=== PATIENT | male | born 1990 | race Caucasian/White ===

== ENCOUNTER 2016-06-23 18:05 | Emergency (ER) | payer SELFPAY ==
[2016-06-23] MEDS ORDERED: DEXAMETHASONE SOD PHOS INJ 10 MG/1 ML VIAL IM ONE (19:21)
[2016-06-23] MEDS ORDERED: HYDROCODONE/ACETAMINOPHEN 5-325 MG 6 TAB/DSPK PO PRN (19:21)
[2016-06-23] MEDS ORDERED: AMOXICILLIN TRIHYDRATE 500 MG CAPSULE PO ONE (19:21)
--- NOTE | 2016-06-23 19:26 | ER Document Report ---
HPI - HPI Patient complains to provider of: sore throat, fever, body aches Pain Level: 3 Context: Patient is a 25-year-old male that comes emergency department for chief complaint of sore throat for the past 3 days, fevers including temperature up to 102.5, body aches. Patient states that he strained his back working in the yard several days ago, states it is worse because of his fever. He denies focal numbness or weakness, denies impact injury, denies bowel or bladder abnormality. He denies history of IV drug abuse. He denies any past medical history other than orthopedic injury. 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 - DERM Skin Color: Normal Past Medical History - General Information source: Patient - Social History Smoking Status: Never Smoker Drug Abuse: None Lives with: Family Family History: Reviewed & Not Pertinent Patient has suicidal ideation: No Patient has homicidal ideation: No Renal/ Medical History: Denies: Hx Peritoneal Dialysis Musculoskeltal Medical History: Reports Hx Arthritis Surgical Hx: Negative - Immunizations Hx Diphtheria, Pertussis, Tetanus Vaccination: Yes Vertical Provider Document - CONSTITUTIONAL General Appearance: WD/WN, No Apparent Distress - patient slightly flushed and diaphoretic, but he is talkative, alert, and well appearing - INFECTION CONTROL TRAVEL OUTSIDE OF THE [place] IN LAST 30 DAYS: No - HEENT HEENT: Atraumatic, Normocephalic, Pharyngeal Exudate - Bilateral tonsillar hypertrophy worse on the right with exudates. No evidence of peritonsillar abscess, clear airway.. negative: Normal ENT Exam - NECK Neck: Lymphadenopathy-Left, Lymphadenopathy-Right, Other - Bilateral mild adenopathy with some tenderness, no submandibular or soft tissue swelling - RESPIRATORY Respiratory: Breath Sounds Normal, No Respiratory Distress O2 Sat by Pulse Oximetry: 99 - CARDIOVASCULAR Cardiovascular: Regular Rate - Not tachycardic on my exam, Regular Rhythm - GI/ABDOMEN Gastrointestinal: Abdomen Soft, Abdomen Non-Tender - BACK Back: Normal Inspection - Unremarkable back exam with no midline tenderness, no saddle anesthesia, full range of motion of all extremities, normal strength, normal distal neurovascular exam. - MUSCULOSKELETAL/EXTREMETIES Musculoskeletal/Extremeties: MAEW, FROM, Non-Tender - NEURO Level of Consciousness: Awake, Alert, Appropriate Motor/Sensory: No Motor Deficit, No Sensory Deficit Course - Re-evaluation Re-evalutation: Patient appears to have recently broken a fever and has some sweating, however he is alert, conversational, well-appearing. No nuchal rigidity. Has obvious exudative pharyngitis with no evidence of peritonsillar abscess, clear airway, no difficulty handling secretions. Patient has no insurance, after discussion he declines a workup, because patient satisfies all 4 Centor criteria patient will be treated for suspected strep pharyngitis, discussed follow-up, discussed return precautions, patient states understanding and agreement. - Vital Signs Vital signs: Temp Pulse Resp BP Pulse Ox 98.8 F 104 H 20 120/95 H 99 06/23/16 18:11 06/23/16 18:11 06/23/16 18:11 06/23/16 18:11 06/23/16 18:11 Discharge - Discharge Clinical Impression: Exudative pharyngitis, Adenopathy, cervical, Body aches Fever Qualifiers: Fever type: unspecified Qualified Code(s): R50.9 - Fever, unspecified Condition: Stable Disposition: HOME, SELF-CARE Additional Instructions: Your physical examination and symptoms are very suggestive of a strep throat infection. You have been treated for this, taking the antibiotic to completion, it is still possible this is viral and could last several more days however. Take ibuprofen for pain and fever, drink plenty of fluids and rest. Follow-up with primary care. Return to the emergency department for any concerning or worsening symptoms. Prescriptions: Amoxicillin Trihydrate [Amoxil 500 mg Capsule] 500 mg PO TID #30 cap Forms: Return to Work
[2016-06-23 20:24] VITALS: BP 120/88
== END 2016-06-23 20:22 | disposition home or self-care (01) ==
LOC: ER 18:05
DX: J02.9 Acute pharyngitis, unspecified (principal); R59.9 Enlarged lymph nodes, unspecified; R52 Pain, unspecified; R50.9 Fever, unspecified
CPT/HCPCS: 99283; 96372; J1100

== ENCOUNTER 2016-11-25 18:32 | Emergency (ER) | payer SELFPAY ==
[2016-11-25] MEDS ORDERED: HYDROCODONE/ACETAMINOPHEN 5-325 MG TABLET PO ONE (21:12)
--- NOTE | 2016-11-25 21:17 | ER Document Report ---
ED General - General Chief Complaint: Toothache Stated Complaint: TOOTH ACHE Time Seen by Provider: 11/25/16 20:32 Mode of Arrival: Ambulatory Information source: Patient, Friend Notes: Patient is a 18-year-old male comes to the emergency room complaining of a 3 day onset of right back molar lower tooth discomfort and pain. Patient states that his fracture multiple times and is now down below his gumline. States that 3 days ago it got a lot worse they woke him up in the middle of the night at evening around 3 AM and felt like somebody was smashing his head against the wall" by patient. Patient comes in denies that he cannot stand the pain anymore and is holding his jaw. He has some mild swelling according to him and some major discomfort. He also states he has an appointment 1 week with a group somewhere within the [facility] that will help him pull this tooth. TRAVEL OUTSIDE OF THE [place] IN LAST 30 DAYS: No - HPI Onset: Other Onset/Duration: Constant, Persistent, Waxing and waning, Worse Quality of pain: Achy, Sharp, Stabbing, Throbbing. denies: No pain Severity: Severe Pain Level: 5 Associated symptoms: Chills Exacerbated by: Other Relieved by: Food - Eating drinking and breathing with hair coming across the tooth as well as change in hot and cold cause severe discomfort. Similar symptoms previously: Yes Recently seen / treated by doctor: No - C - Related Data Allergies/Adverse Reactions: No Known Allergies Allergy (Verified 12/28/15 10:12) Past Medical History - Social History Smoking Status: Current Every Day Smoker Family History: Reviewed & Not Pertinent Patient has suicidal ideation: No Patient has homicidal ideation: No Renal/ Medical History: Denies: Hx Peritoneal Dialysis Musculoskeltal Medical History: Reports Hx Arthritis - Immunizations Hx Diphtheria, Pertussis, Tetanus Vaccination: Yes Physical Exam - Vital signs Vitals: Temp Pulse Resp BP Pulse Ox 97.9 F 84 18 145/118 H 99 11/25/16 18:37 11/25/16 18:37 11/25/16 18:37 11/25/16 18:37 11/25/16 18:37 Course - Vital Signs Vital signs: Temp Pulse Resp BP Pulse Ox 97.7 F 64 18 127/88 H 98 11/25/16 21:29 11/25/16 21:29 11/25/16 18:39 11/25/16 21:29 11/25/16 21:29 Discharge - Discharge Clinical Impression: Dental abscess Condition: Stable Disposition: HOME, SELF-CARE Instructions: Abscess ([facility]), [facility], Clindamycin ([facility]), Oral Narcotic Medication ([facility]) Additional Instructions: Home and rest. Medications prescribed. As I indicated to you a dental block would have giving instant relief almost 100% however since she do not like needles we will only be able to treat you with some pain medication and some antibiotics. It is highly important he follow up with your dental clinic that you are going to see next week in order to get this tooth taken care of. Should you have any concerns or problems return to ER for a recheck or possible for the dental block which may alleviate the discomfort for a while. Prescriptions: Clindamycin HCl 300 mg PO Q6 #40 capsule Hydrocodone/Acetaminophen [(ER) Hanna 5-325 mg Tabs #6 ER Disp] 0 tab PO Q4 PRN #6 dspk PRN Reason: For Pain Hydrocodone/Acetaminophen [Hanna 7.5-325 mg Tablet] 1 tab PO Q6 PRN #12 tablet PRN Reason: For Pain Scale 3-5
[2016-11-25 21:42] VITALS: BP 127/88
== END 2016-11-25 21:42 | disposition home or self-care (01) ==
LOC: ER 18:32
DX: K04.7 Periapical abscess without sinus (principal); K08.89 Other specified disorders of teeth and supporting structures; R22.0 Localized swelling, mass and lump, head
CPT/HCPCS: 99282

== ENCOUNTER 2017-12-22 01:39 | Emergency (ER) | payer SELFPAY ==
[2017-12-22] MEDS ORDERED: HYDROCODONE/ACETAMINOPHEN 7.5-325 MG TABLET PO ONE (03:17)
--- NOTE | 2017-12-22 03:31 | ER Document Report ---
HPI - HPI Patient complains to provider of: Toothache Pain Level: 5 Context: Patient is a 27-year-old male presenting to the emergency department complaining of left lower tooth pain. Patient states he has had pain for the last 2 weeks intermittently. Patient states he called the [facility] in [facility] office and has an appointment next . States they recommended he come to the emergency department to get oral antibiotics as they will not be able to do any sort of dental procedures if there is an active infection. Patient states he has tried Tylenol and Motrin at home for the pain which has not helped. Patient denies any fever. Past medical history: None Medications: None Allergies: None Patient states he did take 4 tabs of an old the penicillin prescription he found in his medicine cabinet 7 days ago. Past Medical History - General Information source: Patient - Social History Smoking Status: Current Every Day Smoker Frequency of alcohol use: None Drug Abuse: None Lives with: Family Family History: Reviewed & Not Pertinent Patient has suicidal ideation: No Patient has homicidal ideation: No Renal/ Medical History: Denies: Hx Peritoneal Dialysis Musculoskeletal Medical History: Reports Hx Arthritis - Immunizations Hx Diphtheria, Pertussis, Tetanus Vaccination: Yes Vertical Provider Document - CONSTITUTIONAL Agree With Documented VS: Yes Notes: GENERAL: Alert, interacts well. Holding the left side of his face. HEAD: Normocephalic, atraumatic. EYES: Pupils equal, round, and reactive to light. Extraocular movements intact. ENT: Oral mucosa moist, tongue midline. Obvious decay to tooth #17, no surrounding, erythema, no fluctuance or induration noted, negative Ludwigs angina NECK: Full range of motion. Supple. Trachea midline. No adenopathy appreciated LUNGS: Clear to auscultation bilaterally, no wheezes, rales, or rhonchi. No respiratory distress. HEART: Regular rate and rhythm. No murmur ABDOMEN: Soft, non-tender. Non-distended. Bowel sounds present in all 4 quadrants. EXTREMITIES: Moves all 4 extremities spontaneously. No edema, normal radial and dorsalis pedis pulses bilaterally. No cyanosis. BACK: no cervical, thoracic, lumbar midline tenderness. No saddle anesthesia, normal distal neurovascular exam. NEUROLOGICAL: Alert and oriented x3. Normal speech. cranial nerves II through XII grossly intact. PSYCH: Normal affect, normal mood. SKIN: Warm, dry, normal turgor. No rashes or lesions noted. - INFECTION CONTROL TRAVEL OUTSIDE OF THE [place] IN LAST 30 DAYS: No Course - Re-evaluation Re-evalutation: 12/22/17 03:30 Will prescribe patient oral antibiotics and discussed need for [facility]. Discussed Tylenol and Motrin at home for pain and discomfort. - Vital Signs Vital signs: Temp Pulse Resp BP Pulse Ox 98.2 F 86 18 139/86 H 97 12/22/17 01:39 12/22/17 01:39 12/22/17 01:39 12/22/17 01:39 12/22/17 01:39 Discharge - Discharge Clinical Impression: Toothache, Dental caries Condition: Stable Disposition: HOME, SELF-CARE Instructions: [facility], Toothache ([facility]), Penicillin V K ([facility]) Prescriptions: Penicillin V Potassium [Penicillin Vk 500 mg Tablet] 500 mg PO BID #20 tablet
[2017-12-22 03:44] VITALS: BP 140/97
== END 2017-12-22 03:45 | disposition home or self-care (01) ==
LOC: ER 01:39
DX: K02.9 Dental caries, unspecified (principal); K08.89 Other specified disorders of teeth and supporting structures; F17.200 Nicotine dependence, unspecified, uncomplicated
CPT/HCPCS: 99283

== ENCOUNTER 2019-01-21 09:07 | Emergency (ER) | payer SELFPAY ==
--- NOTE | 2019-01-21 10:15 | RADIOLOGY REPORT (SQ) ---
EXAM DESCRIPTION: ANKLE RIGHT COMPLETE COMPLETED DATE/TIME: 01/21/2019 9:46 am REASON FOR STUDY: dropped piano on foot, pain with weight bearing COMPARISON: Right foot films same date NUMBER OF VIEWS: Three views. TECHNIQUE: AP, lateral, and oblique radiographic images acquired of the right ankle. LIMITATIONS: None. FINDINGS: MINERALIZATION: Normal. BONES: No acute fracture or dislocation. No worrisome bone lesions. JOINTS: No effusions. SOFT TISSUES: No soft tissue swelling. No foreign body. OTHER: No other significant finding. IMPRESSION: NEGATIVE STUDY OF THE RIGHT ANKLE. NO RADIOGRAPHIC EVIDENCE OF ACUTE INJURY. TECHNICAL DOCUMENTATION: JOB ID: [id number] [employer]- All Rights Reserved Reading location - IP/workstation name: [email or web address]
--- NOTE | 2019-01-21 10:16 | RADIOLOGY REPORT (SQ) ---
EXAM DESCRIPTION: FOOT RIGHT COMPLETE COMPLETED DATE/TIME: 01/21/2019 9:46 am REASON FOR STUDY: dropped piano on foot, pain with weight bearing. COMPARISON: Right ankle three views same date NUMBER OF VIEWS: Three views. TECHNIQUE: AP, lateral and oblique radiographic images acquired of the right foot. LIMITATIONS: None. FINDINGS: MINERALIZATION: Normal. BONES: No acute fracture or dislocation. No worrisome bone lesions. JOINTS: No effusions. SOFT TISSUES: Diffuse dorsal forefoot soft tissue swelling. No foreign body. OTHER: No other significant finding. IMPRESSION: Diffuse dorsal forefoot soft tissue swelling. No acute fracture. TECHNICAL DOCUMENTATION: JOB ID: [id number] [employer]- All Rights Reserved Reading location - IP/workstation name: [email or web address]
--- NOTE | 2019-01-21 10:33 | ER Document Report ---
HPI - HPI Time Seen by Provider: 01/21/19 09:51 Pain Level: 3 Context: Patient is a 28-year-old male who presents emergency department with a chief complaint of right foot swelling. Patient reports Monday he was moving a piano up the stairs and as he was walking backwards up the stairs the piano dropped on the top of his foot. Patient reports at that time his foot was stuck in between the step and the piano and causing him to fall backwards and stretch the top of his foot. Patient reports he did have immediate swelling. Patient reports he did elevate his foot and take ibuprofen yesterday with minimal relief. Patient reports it is very difficult and painful to ambulate although he is able to. Patient denies any other injury. Patient denies use of blood thinners. Patient denies head or back pain. Past Medical History - General Information source: Patient - Social History Smoking Status: Current Every Day Smoker Chew tobacco use (# tins/day): No Frequency of alcohol use: Rare Drug Abuse: None Lives with: Family Family History: Reviewed & Not Pertinent Patient has suicidal ideation: No Patient has homicidal ideation: No - Past Medical History Cardiac Medical History: Reports: None Pulmonary Medical History: Reports: None EENT Medical History: Reports: None Neurological Medical History: Reports: None Endocrine Medical History: Reports: None Renal/ Medical History: Reports: None. Denies: Hx Peritoneal Dialysis Malignancy Medical History: Reports None GI Medical History: Reports: None Musculoskeletal Medical History: Reports Hx Arthritis Skin Medical History: Reports None Psychiatric Medical History: Reports: None Traumatic Medical History: Reports: None Infectious Medical History: Reports: None Surgical Hx: Negative - Immunizations Hx Diphtheria, Pertussis, Tetanus Vaccination: Yes Vertical Provider Document - CONSTITUTIONAL Agree With Documented VS: Yes Exam Limitations: No Limitations General Appearance: No Apparent Distress - INFECTION CONTROL TRAVEL OUTSIDE OF THE [place] IN LAST 30 DAYS: No - HEENT HEENT: Atraumatic, Normocephalic, PERRLA - NECK Neck: Normal Inspection - RESPIRATORY Respiratory: Breath Sounds Normal, No Respiratory Distress - CARDIOVASCULAR Cardiovascular: Regular Rate, Regular Rhythm - GI/ABDOMEN Gastrointestinal: Abdomen Soft, Abdomen Non-Tender, Normal Bowel Sounds - MUSCULOSKELETAL/EXTREMETIES Musculoskeletal/Extremeties: FROM Notes: Patient has tenderness and ecchymosis noted to the dorsal aspect of the right foot. Patient does have a palpable +2 dorsalis pedis and posterior tibial pulse. Patient does not have any point tenderness to the medial or lateral malleolus. Patient able to move all of his digits on his right foot. Patient has a less than 2-second cap refill. - NEURO Level of Consciousness: Awake, Alert, Appropriate - DERM Integumentary: Warm, Dry, No Rash Course - Re-evaluation Re-evalutation: 01/21/19 10:31 I did discuss the results of the x-ray with the patient. Patient diagnosed with a right foot sprain. We will place the patient in an Srinivasa bandage and given crutches. Patient to continue icing, elevating and using anti-inflammatories. - Vital Signs Vital signs: Temp Pulse Resp BP Pulse Ox 98.5 F 95 16 127/74 H 96 01/21/19 09:13 01/21/19 09:13 01/21/19 09:13 01/21/19 09:13 01/21/19 09:13 - Diagnostic Test Radiology reviewed: Reports reviewed Radiology results interpreted by me: 01/21/19 10:32 Ankle X-Ray 01/21/19 09:20 IMPRESSION: NEGATIVE STUDY OF THE RIGHT ANKLE. NO RADIOGRAPHIC EVIDENCE OF ACUTE INJURY. Foot X-Ray 01/21/19 09:20 IMPRESSION: Diffuse dorsal forefoot soft tissue swelling. No acute fracture. Discharge - Discharge Clinical Impression: Right foot sprain Qualifiers: Encounter type: initial encounter Qualified Code(s): S93.601A - Unspecified sprain of right foot, initial encounter Condition: Stable Disposition: HOME, SELF-CARE Additional Instructions: SPRAIN: Your injury is a sprain. A sprain results from stretching or tearing of the ligaments, usually from a twisting injury. The ligaments will require time and protection in order to heal properly. Many sprains are quite disabling and should be taken seriously. The usual initial treatment of sprains is cold packs, elevation, and rest of the injured area. Your physician has assessed the seriousness of your ligament injury, and has outlined a treatment plan. Understand that this treatment may change, depending on how you progress. If a re-examination was recommended, it is important that you follow up as instructed. Call the doctor any time if there is severe pain, numbness, or loss of function in the injured area. SRINIVASA WRAP: A compression dressing (srinivasa wrap) has been placed. This helps hold the area still. It limits swelling and internal bleeding. The wrap should be comfortably snug -- not tight. You should feel a sense of pressure, but not severe pain under the wrap. Unless the physician tells you otherwise, you can adjust the wrap for comfort. If the wrap causes symptoms suggesting it's too tight -- uncomfortable pressure, swelling or discoloration beyond the wrap, numbness, or severe pain -- you must loosen the wrap. If these symptoms don't resolve promptly, return for re-evaluation. SPLINT PRECAUTIONS: A splint has been placed. This will protect the area while healing begins. Your problem does NOT normally require a cast. It MUST, however, be held still! Keep the splint on ALL THE TIME until instructed to remove it by the doctor. As you begin to use the area, be careful. You shouldn't do anything which causes discomfort -- you may disturb the injury even with the splint in place. After the initial period of rest and elevation, if splint does not prevent pain when you move, come back. You may require placement of a different splint, or a cast. If there is unexpected severe pain, or numbness, discoloration, or swelling beyond the splint, you should return at once. If you feel that the splint has broken or become loose, come back. USE OF CRUTCHES: The doctor has recommended that you not bear weight at this time. You will need to use crutches. Adjust the crutches so the tops come to about two inches under the armpit while you are standing upright. Use your hands -- not your armpits -- to support your weight. To get into a chair, support yourself with one crutch on the injured side. Hold the chair with the other hand, then lower yourself while putting all your weight on the good leg. Going up stairs is `good leg up, step up, then bring up crutches and bad leg.' Down stairs is `bad leg and crutches down, then bring good leg down.' If you develop numbness or swelling in an arm or hand, you are using the crutches incorrectly. Return if you are having any problems with the crutches. ICE & ELEVATION: Apply ice packs frequently against the painful area. Many different schedules are recommended, such as "20 minutes on, 20 minutes off" or "one hour ice, two hours rest." If you need to work, you may need to go longer between ice treatments. You should plan to have the area ice packed AT LEAST one-fourth of the time. The ice should be applied over the wrap, tape, or splint, or over a layer of cloth -- not directly against the skin. Some ice bags have a built-in cloth and can be put directly on the skin. Your injured part should be elevated as much as possible over the next 48 h ours. Try to keep the injury above the level of the heart. Avoid use of the injured area. Elevation and rest will decrease the swelling. USE OF [id number] IBUPROFEN: Ibuprofen (Advil, Nuprin, Medipren, Motrin IB) is a medication for fever and pain control. In addition, it has anti- inflammatory effects which may be beneficial, especially in the treatment of injuries. It's best to take ibuprofen with food. Persons with ulcer disease or allergy to aspirin should notify their physician of this before taking ibuprofen. Ibuprofen can be given every four to six hours, for a total of four doses daily. Age Pain or fever dose Antiinflammatory dose 6-8 yr 200 mg (1 tab) 200 mg (1 tab) 9-11 yr 200 mg (1 tab) 200-400 mg (1-2 tab) 11-14 yr 200-400 mg (1-2 tab) 400 mg (2 tab) 15-adult 400 mg (2 tab) 600 mg (3 tab) ORAL NARCOTIC MEDICATION: You have been given a prescription for pain control. This medication is a narcotic. It's best taken with food, as nausea can result if taken on an empty stomach. Don't operate machinery or drive within six hours of taking this medication. Do not combine this medicine with alcohol, or with any medication which can cause sedation (such as cold tablets or sleeping pills) unless you get permission from the physician. Narcotics tend to cause constipation. If possible, drink plenty of fluids and eat a diet high in fiber and fruits. Please be aware that prescription narcotics also have the potential for abuse. People become addicted to these medications because of the general sense of wellbeing that they induce. This feeling along with a significant reduction in tension, anxiety, and aggression provides a stimulating seductive quality to these drugs. Once your pain is under control, we encourage you to discard your unused narcotics. FOLLOW-UP CARE: If you have been referred to a physician for follow-up care, call the physicians office for an appointment as you were instructed or within the next two days. If you experience worsening or a significant change in your symptoms, notify the physician immediately or return to the Emergency Department at any time for re-evaluation. Prescriptions: Naproxen 500 mg PO BID PRN #14 tablet PRN Reason: Forms: Return to Work Referrals: NIKKY LAGOS DO [ACTIVE STAFF] - Follow up as needed TAMEKA SUNG MD [ACTIVE STAFF] - Follow up as needed SHAYY SUAREZ JR, DO [ACTIVE PROVISIONAL STAFF] - Follow up as needed
[2019-01-21 10:45] VITALS: BP 137/80
== END 2019-01-21 10:46 | disposition home or self-care (01) ==
LOC: ER 09:07
DX: S93.601A Unspecified sprain of right foot, initial encounter (principal); M79.89 Other specified soft tissue disorders; W22.8XXA Striking against or struck by other objects, initial encounter; F17.200 Nicotine dependence, unspecified, uncomplicated
CPT/HCPCS: 99283

== ENCOUNTER 2019-07-29 12:28 | Emergency (ER) | payer SELFPAY ==
[2019-07-29 12:54] VITALS: BP 118/75
[2019-07-29] MEDS ORDERED: LIDOCAINE 2% VISCOUS SOLN 15 ML UDCUP PO ONE (13:24)
[2019-07-29] MEDS ORDERED: CLINDAMYCIN HCL 150 MG CAPSULE PO ONE (13:24)
--- NOTE | 2019-07-29 13:27 | ER Document Report ---
HPI - HPI Patient complains to provider of: Dental pain Time Seen by Provider: 07/29/19 13:23 Onset: Other - 4 days Onset/Duration: Worse Pain Level: 5 Context: Patient presents complaining of dental pain chronically that worsened over the past 4 days. Patient reports tenderness to the left lower jaw. Patient just finished antibiotics for his tooth ache 4 days ago. Patient denies any facial swelling or fever. Associated Symptoms: Other - Dental pain. denies: Fever Exacerbated by: Denies Relieved by: Denies Similar symptoms previously: No Recently seen / treated by doctor: No - ROS ROS below otherwise negative: Yes Systems Reviewed and Negative: Yes All other systems reviewed and negative - CONSTITUTIONAL Constitutional: DENIES: Fever, Chills - EENT Notes: Dental pain - RESPIRATORY Respiratory: DENIES: Coughing - GASTROINTESTINAL Gastrointestinal: DENIES: Nausea, Patient vomiting - DERM Skin Color: Normal Skin Problems: None Past Medical History - General Information source: Patient - Social History Smoking Status: Current Every Day Smoker Frequency of alcohol use: None Drug Abuse: None Occupation: Furniture moving Family History: Reviewed & Not Pertinent Renal/ Medical History: Denies: Hx Peritoneal Dialysis Musculoskeletal Medical History: Reports Hx Arthritis Surgical Hx: Negative - Immunizations Hx Diphtheria, Pertussis, Tetanus Vaccination: Yes Vertical Provider Document - CONSTITUTIONAL Agree With Documented VS: Yes Exam Limitations: No Limitations General Appearance: WD/WN, No Apparent Distress - INFECTION CONTROL TRAVEL OUTSIDE OF THE [place] IN LAST 30 DAYS: No - HEENT HEENT: Atraumatic, Normocephalic Mouth Diagram: 1 - L dental fracture, tenderness 2 - tenderness, fracture - NECK Neck: Normal Inspection, Supple. negative: Lymphadenopathy-Left, L ymphadenopathy-Right - RESPIRATORY Respiratory: Breath Sounds Normal, No Respiratory Distress - CARDIOVASCULAR Cardiovascular: Regular Rate, Regular Rhythm - MUSCULOSKELETAL/EXTREMETIES Musculoskeletal/Extremeties: MAEW - NEURO Level of Consciousness: Awake, Alert, Appropriate Motor/Sensory: No Motor Deficit - DERM Integumentary: Warm, Dry Course - Re-evaluation Re-evalutation: 07/29/19 13:26 Patient without any dental abscess, no trismus, no potential airway compromise. Patient encouraged to follow-up with dental care provider for further management. - Vital Signs Vital signs: Temp Pulse Resp BP Pulse Ox 98.0 F 82 16 118/75 98 07/29/19 12:51 07/29/19 12:51 07/29/19 12:51 07/29/19 12:51 07/29/19 12:51 Discharge - Discharge Clinical Impression: Toothache Condition: Stable Disposition: HOME, SELF-CARE Instructions: Clindamycin ([facility]), Oral Narcotic Medication ([facility]), Toothache ([facility]) Additional Instructions: Return immediately for any new or worsening symptoms Followup with your primary care provider, call tomorrow to make a followup appointment Follow-up with your dental care provider as planned Prescriptions: Acetaminophen with Codeine [Tylenol #3 Tablet] 1 each PO Q6HP PRN #12 tablet PRN Reason: Clindamycin HCl 300 mg PO TID #21 capsule Naproxen [Naprosyn 250 Nmg Tablet] 1 tab PO BID #14 tablet Referrals: [facility] [Provider Group] - Follow up as needed
== END 2019-07-29 13:40 | disposition home or self-care (01) ==
LOC: ER 12:28
DX: K08.89 Other specified disorders of teeth and supporting structures (principal); R68.84 Jaw pain; F17.200 Nicotine dependence, unspecified, uncomplicated
CPT/HCPCS: 99282; J3490

== ENCOUNTER 2019-08-02 01:49 | Emergency (ER) | payer SELFPAY ==
[2019-08-02] MEDS ORDERED: ACETAMINOPHEN 325 MG TABLET PO ONE (02:05)
[2019-08-02] MEDS ORDERED: HYDROCODONE/ACETAMINOPHEN 5-325 MG (6 TAB/ER DISP) PO PRN (03:49)
[2019-08-02] MEDS ORDERED: AMOXICILLIN TR/POT CLAVULANATE 875-125 MG TAB PO ONE (03:51)
--- NOTE | 2019-08-02 03:57 | ER Document Report ---
ED General - General Chief Complaint: Toothache Stated Complaint: TOOTH PAIN Notes: Patient is a 28-year-old white male with a history of poor dentition who presents to the emergency department with a chief complaint of ongoing right lower posterior molar pain. He was evaluated by dentist who advised they could not extract the tooth with current infection. The dentist put him on 2 weeks of penicillin. He states he finished the penicillin and the tooth was still aching and sore. Dentist felt the infection was not gone and recommended he return. Patient requested to come to [facility] emergency department as it was closer to his house, dentist obliged. Here we changed him to clindamycin a few days back. Patient states despite given Tylenol 3 and clindamycin the pain persists. He states every time he takes a clindamycin he gets a severe burning pain in the tooth. He states the only thing that seems to alleviate it is cold water being switched into the cavity of the tooth opening. He denies any new injury or trauma. Denies difficulty breathing or trouble with secretions. Denies tongue or throat swelling. Denies fever, chills or night sweats. No facial swelling. TRAVEL OUTSIDE OF THE [place] IN LAST 30 DAYS: No - Related Data Allergies/Adverse Reactions: No Known Allergies Allergy (Verified 08/02/19 01:58) Home Medications: ANTIBIOTICS Past Medical History - Social History Smoking Status: Current Every Day Smoker Frequency of alcohol use: None Drug Abuse: None Family History: Reviewed & Not Pertinent Patient has homicidal ideation: No Renal/ Medical History: Denies: Hx Peritoneal Dialysis Musculoskeletal Medical History: Reports Hx Arthritis - Immunizations Hx Diphtheria, Pertussis, Tetanus Vaccination: Yes Review of Systems - Review of Systems EENT: Dental problem -: Yes All other systems reviewed and negative Physical Exam - Vital signs Vitals: Temp Pulse Resp BP Pulse Ox 97.6 F 62 24 H 163/96 H 100 08/02/19 01:54 08/02/19 01:54 08/02/19 01:54 08/02/19 01:54 08/02/19 01:54 - General General appearance: Alert, Anxious - HEENT Head: Normocephalic, Atraumatic Eyes: Normal Conjunctiva: Normal Extraocular movements intact: Yes Ears: Normal External canal: Normal Tympanic membrane: Normal Nasal: Normal Mouth/Lips: Normal Teeth diagram: 1 - Open fracture, chronic with exposed nerve roots. Affected tooth tender to percussion. No surrounding gingival abscess or significant erythema or edema. Patent airway. Handling secretions well. No sublingual or submental swelling. No trismus. Pharynx: Normal Neck: Normal - Respiratory Respiratory status: No respiratory distress Chest status: Nontender Breath sounds: Normal Chest palpation: Normal - Cardiovascular Rhythm: Regular Heart sounds: Normal auscultation - Neurological Neuro grossly intact: Yes Cognition: Normal Orientation: AAOx4 - Psychological Associated symptoms: Tearful - Skin Skin Temperature: Warm Skin Moisture: Dry Skin Color: Normal Course - Re-evaluation Re-evalutation: 08/02/19 03:54 Patient has previously failed Pen-Vee K and clindamycin early in the course, he requested discontinue clindamycin. I offered a dental block with lidocaine, he abruptly stated he would not except a dental block because the last time he had a dental injection with lidocaine it did the opposite and created more pain and problems in his mouth. He states he is closely following with a dentist and has an appointment next Monday for reevaluation. We will give him a short course of pain medications after checking his [place] prescription drug monitoring it does not appear that he has had many or multiple. Given a disp ense pack of [place] here. Changed to Augmentin and will prescribe Peridex mouthwash solution. Counseled him regarding the importance of follow-up with a dentist and advised to return here or any ER immediately with any new, persistent or worsening symptoms. He verbalized understood and agreed. - Vital Signs Vital signs: Temp Pulse Resp BP Pulse Ox 97.6 F 62 24 H 163/96 H 100 08/02/19 01:58 08/02/19 01:54 08/02/19 01:54 08/02/19 01:54 08/02/19 01:54 Discharge - Discharge Clinical Impression: Dentalgia, Dental abscess Condition: Stable Disposition: HOME, SELF-CARE Instructions: Oral Narcotic Medication ([facility]), Toothache ([facility]) Additional Instructions: Please follow-up with your dentist as scheduled. Please return here or any ER immediately with any new, persistent or worsening symptoms. Prescriptions: Amoxicillin/Potassium Clav [Augmentin 875-125 Tablet] 1 tab PO Q12 #19 tablet Chlorhexidine Gluconate [Peridex] 15 ml MM QID #120 ml
[2019-08-02 04:11] VITALS: BP 151/109
== END 2019-08-02 04:14 | disposition home or self-care (01) ==
LOC: ER 01:49
DX: K04.7 Periapical abscess without sinus (principal); M84.48XA Pathological fracture, other site, initial encounter for fracture; K08.89 Other specified disorders of teeth and supporting structures
CPT/HCPCS: 99282; J3490